=== PATIENT | male | born 1965 | race Caucasian/White ===

== ENCOUNTER → 2017-01-10 | Outpatient (REF) | payer OTHER | LOC: M LAB REF 21:01 | PROVIDERS: ATTEND Physician Assistant Surgical | DX: J02.9 Acute pharyngitis, unspecified (principal) ==

== ENCOUNTER 2023-08-15 15:11 | Emergency (ER) | payer OTHER, SELFPAY ==
[~2023-08-15] VITALS: Ht 170.2 cm; Wt 101.1 kg
[2023-08-15 15:12] VITALS: BP 112/75; TEMP 98.6; O2SAT 99
== END 2023-08-15 17:14 | disposition left against medical advice (07) ==
LOC: M ED 15:11
DX: Z53.21 Procedure and treatment not carried out due to patient leaving prior to being seen by health care provider (principal)